=== PATIENT | female | born 1990 | race Hispanic/Latino ===

== ENCOUNTER 2020-04-16 14:47 | Emergency (ER) | payer MEDICAID, OTHER ==
[~2020-04-16 14:47] MED LIST: IBUP-1493 PO; PREN1TAB89 PO
[2020-04-16 15:10] LABS: BASOPHILS % (AUTO) 0.3 % (0.0-5.0); EOSINOPHILS % (AUTO) 0.7 % (0.0-8.0); HEMATOCRIT 31.3 % (36-48); LYMPHOCYTES % (AUTO) 22.6 % (21.0-51.0); MEAN CORPUSCULAR HEMOGLOBIN 18.7 pg (27.0-33.0); MEAN CORPUSCULAR HGB CONC 28.4 g/dL (32.0-36.0); MEAN CORPUSCULAR VOLUME 65.8 fL (79-99); MONOCYTES % (AUTO) 8.2 % (3.0-13.0); NEUTROPHILS % (AUTO) 67.9 % (40.0-77.0); PLATELET COUNT (AUTO) 303 K/uL (130-400); RED BLOOD CELL COUNT(AUTO) 4.76 MIL/uL (4.00-5.50); RED CELL DISTRIBUTION WIDTH 17.8 % (11.0-15.5); WHITE BLOOD COUNT (AUTO) 8.8 K/uL (4.8-10.8)
[2020-04-16] MEDS ORDERED: ALPRAZOLAM 0.25 MG TABLET ONE (15:13)
[2020-04-16 15:19] LABS: CREATININE 0.7 mg/dL (0.5-1.5); POTASSIUM 3.8 mmol/L (3.5-5.1)
[2020-04-16 15:24] LABS: ALBUMIN 3.4 g/dL (3.5-5.0); BILIRUBIN,TOTAL 0.2 mg/dL (0.2-1.0); TOTAL PROTEIN, SERUM 7.9 g/dL (6.0-8.3)
[2020-04-16 16:20] LABS: APPEARANCE,URINE Clear (CLEAR); BILIRUBIN,URINE Negative (NEGATIVE); COLOR,URINE Yellow (YELLOW); GLUCOSE, URINE (UA) 500 mg/dL (NEGATIVE); KETONES,URINE Negative (NEGATIVE); LEUKOCYTE ESTERASE ,URINE Trace (NEGATIVE); NITRATE,URINE Negative (NEGATIVE); OCCULT BLOOD,URINE Negative (NEGATIVE); PROTEIN,URINE Negative (NEGATIVE)
[2020-04-16 16:26] LABS: HCG,QUAL RESULT NEGATIVE (NEGATIVE)
[2020-04-16 16:27] LABS: BACTERIA,URINE Rare /HPF (None Seen); RBC,URINE 0-1 /HPF (0-1)
[2020-04-16 16:28] LABS: MUCUS,URINE Rare LPF (None Seen); SQUAMOUS EPITHELIAL CELL,UR Few /HPF (0-2)
== END 2020-04-16 18:18 | disposition home or self-care (01) ==
LOC: EDH 14:47
DX: F41.1 Generalized anxiety disorder (principal); D64.9 Anemia, unspecified; R07.89 Other chest pain
CPT/HCPCS: 36415; 71045; 80053; 81001; 81025; 84484; 85025; 93005

== ENCOUNTER 2023-09-30 08:57 | Emergency (ER) | payer OTHER ==
[~2023-09-30] VITALS: Ht 180.3 cm; Wt 136.1 kg
[2023-09-30 08:58] VITALS: BP 140/92; PULSE 97; RESP 16
[2023-09-30 09:25] LABS: RAPID GROUP A STREP negative (NEGATIVE)
[2023-09-30 09:32] LABS: SARS-CoV-2, RNA, NAAT POSITIVE SARS CoV-2 (NEGATIVE)
[2023-09-30 09:36] LABS: INFLUENZA TYPE A NEGATIVE FOR TYPE A (NEG); INFLUENZA TYPE B NEGATIVE FOR TYPE B (NEG)
[2023-09-30] MEDS ORDERED: AZIT250T9 PO (11:29)
[2023-09-30] MEDS ORDERED: ALBUHFA IH (11:29)
[2023-09-30] MEDS ORDERED: BENZ-39 PO (11:29)
== END 2023-09-30 11:45 | disposition home or self-care (01) ==
LOC: EDH 08:57
DX: U07.1 COVID-19 (principal); J02.9 Acute pharyngitis, unspecified
CPT/HCPCS: 71045; 81025; 87635; 87804; 87880